=== PATIENT | male | born 1975 | race Hispanic/Latino ===

== ENCOUNTER 2017-07-31 01:10 | Emergency (ER) | payer SELFPAY ==
[2017-07-31] MEDS ORDERED: Ibuprofen 800 MG TAB ONE (01:36)
[2017-07-31] MEDS ORDERED: methylPREDNISolone Sod Succ/PF 125 MG/2 ML VIAL ONE (02:03)
[2017-07-31] MEDS ORDERED: Sterile Water 10 ML ONE (02:03)
[2017-07-31 02:14] LABS: #Lymphocytes 0.5 thou/uL (1.20-3.40); #Monocytes 0.5 thou/uL (0.11-0.59); #Neutrophils 6.5 thou/uL (1.40-6.50); %Basophils 0.1 % (0.0-1.0); %Eosinophils 0.6 % (0.0-10.0); %Lymphocytes 6.7 % (21.0-51.0); %Monocytes 6.2 % (0.0-10.0); %Neutrophils 86.4 % (42.0-75.0); Hemoglobin 14.2 g/dL (14.0-18.0); Mean Corpuscular HGB CONC 33.6 g/dL (32.0-36.0); Mean Corpuscular Hemoglobin 31.1 pg (27.0-31.0); Mean Corpuscular Volume 92.5 fl (80.0-94.0); Mean Platelet Volume 8.5 fL (7.4-10.4); Platelet Count 150 thou/uL (130-400); RBC Distribution Width 12.7 % (11.5-14.5); Red Blood Cell (RBC) Count 4.57 mill/uL (4.70-6.10); White Blood Cell (WBC) Count 7.5 thou/uL (4.8-10.8)
[2017-07-31 02:36] LABS: ALT (SGPT) 19 U/L (8-55); AST (SGOT) 18 U/L (5-34); Albumin 4.2 g/dL (3.5-5.0); Alkaline Phosphatase 76 U/L (40-150); Anion Gap 13 mmol/L (10-20); BUN (Urea Nitrogen) 10 mg/dL (8.9-20.6); Bilirubin, Total 0.5 mg/dL (0.2-1.2); Calc. Creatinine Clearance 0 mL/min (70-130); Calcium 8.8 mg/dL (7.8-10.44); Carbon Dioxide 20 mmol/L (22-29); Chloride 103 mmol/L (98-107); Estimated GFR-MDRD 76; Globulin 2.8 g/dL (2.4-3.5); Glucose 108 mg/dL (70-105); Potassium 3.7 mmol/L (3.5-5.1); Sodium 132 mmol/L (136-145)
--- NOTE | 2017-07-31 08:32 | RAD ---
CHEST PA AND LATERAL: Date: 07/31/17 HISTORY: 42-year-old male with dyspnea, weakness, headache, and nonproductive cough. COMPARISON: 04/22/15. FINDINGS: Heart size is normal. The lungs are clear. IMPRESSION: No acute intrathoracic disease. POS: [facility]
== END 2017-07-31 02:51 | disposition home or self-care (01) ==
LOC: ERS 01:10
DX: J20.9 Acute bronchitis, unspecified (principal); F17.210 Nicotine dependence, cigarettes, uncomplicated; Z71.6 Tobacco abuse counseling
CPT/HCPCS: 36415; 71046; 80053; 83605; 85025; 87040; 87804; 94640; 96374; 99406; A4216; J2930; J7620

== ENCOUNTER 2017-12-05 21:46 | Emergency (ER) | payer SELFPAY ==
[~2017-12-05 21:46] MED LIST: ISOVUE-370 76%-LOCM 1 ML ONE
[2017-12-05 22:11] LABS: #Basophils 0.1 thou/uL (0.0-0.2); #Eosinphils 0.4 thou/uL (0.0-0.7); #Lymphocytes 2.7 thou/uL (1.20-3.40); #Monocytes 0.5 thou/uL (0.11-0.59); #Neutrophils 5.1 thou/uL (1.40-6.50); %Basophils 0.9 % (0.0-1.0); %Eosinophils 4.7 % (0.0-10.0); %Lymphocytes 30.7 % (21.0-51.0); %Monocytes 5.3 % (0.0-10.0); %Neutrophils 58.3 % (42.0-75.0); Hemoglobin 14.7 g/dL (14.0-18.0); Mean Corpuscular HGB CONC 32.8 g/dL (32.0-36.0); Mean Corpuscular Hemoglobin 30.5 pg (27.0-31.0); Mean Corpuscular Volume 92.9 fl (80.0-94.0); Mean Platelet Volume 8.6 fL (7.4-10.4); Platelet Count 194 thou/uL (130-400); RBC Distribution Width 12.1 % (11.5-14.5); Red Blood Cell (RBC) Count 4.82 mill/uL (4.70-6.10); White Blood Cell (WBC) Count 8.7 thou/uL (4.8-10.8)
[2017-12-05 22:30] LABS: Bilirubin Negative (Negative); Blood, Urine Negative (Negative); Clarity CLEAR (Clear); Glucose, Urine (Dipstick) Negative (Negative); Leukocyte Negative (Negative); Nitrite Negative (Negative); Protein, Urine (Dipstick) Negative (Neg-Trace); Specific Gravity, Urine 1.028 (1.002-1.036); Urobilinogen 0.2 mg/dL (0.2-1.0)
[2017-12-05 22:36] LABS: CKMB 0.7 ng/mL (0-6.6); Troponin I Less than 0.010 ng/mL (< 0.028)
[2017-12-05 22:38] LABS: ALT (SGPT) 14 U/L (8-55); AST (SGOT) 15 U/L (5-34); Albumin 4.2 g/dL (3.5-5.0); Alkaline Phosphatase 90 U/L (40-150); Anion Gap 10 mmol/L (10-20); BUN (Urea Nitrogen) 14 mg/dL (8.9-20.6); Bilirubin, Total 0.4 mg/dL (0.2-1.2); CK (CPK) 135 U/L (30-200); Calc. Creatinine Clearance 0 mL/min (70-130); Carbon Dioxide 27 mmol/L (22-29); Chloride 104 mmol/L (98-107); Estimated GFR-MDRD Greater than 90; Globulin 2.8 g/dL (2.4-3.5); Glucose 89 mg/dL (70-105); Lipase 37 U/L (8-78); Magnesium 2.5 mg/dL (1.6-2.6); Potassium 3.7 mmol/L (3.5-5.1); Sodium 137 mmol/L (136-145)
--- NOTE | 2017-12-05 22:57 | RAD ---
AP CHEST: History: Chest pain, abdominal pain. FINDINGS: The lungs are well aerated. No evidence of active intrathoracic disease is seen. No evidence of effus ions, pneumonia, or pneumothorax is seen. IMPRESSION: Unremarkable AP chest. POS: [facility]
--- NOTE | 2017-12-05 23:01 | CT ---
CONTRAST ENHANCED CT OF THE ABDOMEN AND PELVIS: History: 42-year-old presents with constant stabbing pain for the past several months. The patient pr esents to Emergency Department for emergent work up of this chronic abdominal pain. IV contrast given . Oral contrast, unfortunately, as not given which decreases the sensitivity for detection of patholo gy. FINDINGS: The lung bases are unremarkable. No evidence of free intraperitoneal air is seen. The liver and spleen are unremarkable. The gallbladder is unremarkable. The pancreas is unremarkable. The stomach is moderately distended. The small bowel demonstrates normal appearance without evidence of obstruction. The appendix is difficult to visualize and is definitely not seen. No evidence of periaortic lymphadenopathy is seen. The patient has had previous lower lumbar and upper sacral fusion. No evidence of periaortic lymphadenopathy seen. No evidence of renal calculi seen. An area of a small sclerotic change is seen in the left ischium, possibly representing a bone island. No other obvious bony lesions seen. Incidentally noted retroaortic left renal vein is present. IMPRESSION: 1. Post-surgical changes, otherwise unremarkable CT images of the abdomen and pelvis. POS: [facility]
[2017-12-05] MEDS ORDERED: Dicyclomine 20 MG TAB ONE (23:45)
== END 2017-12-06 00:11 | disposition home or self-care (01) ==
LOC: ERS 21:46
DX: R10.9 Unspecified abdominal pain (principal); F17.210 Nicotine dependence, cigarettes, uncomplicated
CPT/HCPCS: 36415; 71045; 74177; 80053; 81003; 82550; 82553; 83690; 83735; 84484; 85025; 93005

== ENCOUNTER 2020-04-08 00:38 | Observation (INO) | payer OTHER, SELFPAY ==
[2020-04-08] MEDS ORDERED: Ondansetron PF 4 MG/2 ML Vial ONE (01:10)
[2020-04-08] MEDS ORDERED: Morphine 4 MG/ML VIAL ONE (01:10)
[2020-04-08 01:43] LABS: Hemoglobin 12.7 g/dL (14.0-18.0); Mean Corpuscular Hemoglobin 30.9 pg (27.0-31.0); Mean Corpuscular Volume 93.5 fL (78.0-98.0); Platelet Count 176 thou/uL (130-400); RBC Distribution Width 12.5 % (11.5-14.5); Red Blood Cell (RBC) Count 4.11 mill/uL (4.70-6.10); White Blood Cell (WBC) Count 4.8 thou/uL (4.8-10.8)
[2020-04-08 01:48] LABS: Band 9 % (5-11); Eosinophils 5 % (0-10); Lymphocytes 21 % (21-51); MDiff Complete? YES; Monocytes 23 % (0-10); Neutrophil 42 % (42-75)
[2020-04-08 01:52] LABS: ALT (SGPT) 31 U/L (8-55); AST (SGOT) 27 U/L (5-34); Albumin 3.8 g/dL (3.5-5.0); Alkaline Phosphatase 92 U/L (40-110); Anion Gap 12 mmol/L (10-20); BUN (Urea Nitrogen) 18 mg/dL (8.9-20.6); Bilirubin, Total 0.3 mg/dL (0.2-1.2); Calc. Creatinine Clearance 0 mL/min (70-130); Calcium 8.3 mg/dL (7.8-10.44); Carbon Dioxide 20 mmol/L (22-29); Chloride 106 mmol/L (98-107); Estimated GFR-MDRD 76; Globulin 2.5 g/dL (2.4-3.5); Glucose 90 mg/dL (70-105); Potassium 4.1 mmol/L (3.5-5.1); Protein, Total 6.3 g/dL (6.0-8.3); Sodium 134 mmol/L (136-145)
[2020-04-08 05:00] LABS: Troponin I 0.013 ng/mL (< 0.028)
[2020-04-08] MEDS ORDERED: HYDROcodone/Acetaminophen 5/325 mg Tablet ONE (05:16)
--- NOTE | 2020-04-08 06:48 | HP ---
REASON FOR ADMISSION: Chest pain. HISTORY OF PRESENT ILLNESS: This is a 45-year-old male patient who presented to the ER complaining of chest pain described as stabbing like in nature, localized in the left parasternal area off and on, occurring at rest, but influenced by positioning himself on the left side, which increases his pain. He denies shortness of breath. The intensity of the pain can range from mild to severe and it reminds him of his the pain that he had before he got a stent placed 10 days ago. Reviewing his records, the patient was admitted to our hospital approximately 10 days ago, diagnosed with non-ST elevation [place]. He underwent cardiac catheterization by Cardiology, which showed 95% obstruction of circumflex and 60% of the LAD. He underwent stent placement to the circumflex and was started on aspirin, Brilinta, an LEMUEL inhibitor, and statin. The patient was discharged home and he has been compliant with his medications. In the ER, he did complain of left lower quadrant pain and generalized abdominal pain that has been ongoing, I did review his records and I see that he had an EGD done and he was positive for H pylori. It was documented that he is being treated for that. PAST MEDICAL HISTORY: 1. Non-ST elevation WA. 2. GERD. SOCIAL HISTORY: He is an active smoker. Does not drink alcohol. Does not abuse drugs. ALLERGIES: NOT KNOWN TO HAVE ANY DRUG ALLERGIES. FAMILY HISTORY: Brother had heart attack at age 47, his father at age 65. REVIEW OF SYSTEMS: All systems reviewed except the above mentioned, found to be negative. PHYSICAL EXAMINATION: GENERAL: Awake, alert, oriented, does not appear in distress. VITAL SIGNS: His blood pressure is 100/51, pulse 67, temperature is 97.8, and saturating 90% on room air. HEENT: Head is nontraumatic and normocephalic. Pupils are equal and reactive. Extraocular movements are intact. Nonicteric sclerae. Well injected conjunctivae. Oral mucosa normal. Nasal mucosa normal. NECK: Supple. No adenopathy. No murmur. Thyroid is not palpable. Trachea is midline. No supraclavicular adenopathy. CARDIOVASCULAR: S1, S2 regular. No murmur. No gallops. No friction rubs. No displacement of PMI. I am able to reproduce the pain that he is complaining of with palpation of his left parasternal area. ABDOMEN: Bowel sounds are positive. Abdomen is slightly distended. It is tender to touch, but overall soft. EXTREMITIES: No lower extremity edema. No cyanosis. NEUROLOGIC: Cranial nerves 2 through 12 within normal limits. Normal motor function. Normal sensory function. Normal reflexes. LABORATORY DATA: Blood work shows a WBC of 4.8, hemoglobin 12.7, platelets 176. Sodium 134, potassium 4.1, bicarb of 20, creatinine 1.06. Troponin 0.01, repeat 0.013. EKG shows normal sinus rhythm, no ST-segment or T-wave changes. ASSESSMENT AND PLAN: This is a 45-year-old male patient presenting with chest pain. He had a stent placed approximately 10 days ago. So far, his troponins are negative. His pain is somewhat reproducible with palpation. The patient will be admitted to telemetry. We will continue cycling his cardiac enzymes. I will consult Cardiology and resume his home medications when the [facility] is available. In regard of his abdominal pain, it seems like it has been a chronic issue. He is on the H pylori treatment regimen and Protonix, we will resume those medications. For deep venous thrombosis prophylaxis, he will be on SCDs. Job ID: [id number]
--- NOTE | 2020-04-08 07:22 | RAD ---
Exam: Chest one view HISTORY:Left-sided chest pain. Comparison: 03/29/2020 FINDINGS: Cardiac silhouette: Normal Aorta: Unremarkable Pulmonary vessels: Normal Costophrenic angles: Clear LUNGS: No masses or consolidation. Pneumothorax: None Osseous abnormalities: None IMPRESSION: No acute cardiopulmonary process.
[2020-04-08] MEDS: Aspirin 81 mg Enteric Coated Tablet PO SCH (07:58)
[2020-04-08] MEDS: TICAGRELOR 90 MG TABLET PO SCH ×3 (07:59→21:02)
[2020-04-08] MEDS ORDERED: Morphine 2 MG/ML VIAL SLOW IVP SCH (08:00)
[2020-04-08 08:12] VITALS: BMI 25.7
[2020-04-08 08:37] LABS: Troponin I 0.013 ng/mL (< 0.028)
[2020-04-08] MEDS ORDERED: Aspirin Chewable 81 MG TAB PO SCH (09:00)
[2020-04-08] MEDS ORDERED: Ketorolac Tromethamine 30 MG/ML VIAL IVP SCH ×2 (10:00→16:30)
--- NOTE | 2020-04-08 10:38 | PRG ---
DATE OF SERVICE: 04/08/2020 SUBJECTIVE: Mr. Fraser came back to the emergency room. He has sharp stabbing chest pain. He can localize with one finger. It was reproduced with palpation of his ribs, but did not get worse with a breath. He came back to the emergency room. Cardiac enzymes were negative. EKG. Normal. OBJECTIVE: VITAL SIGNS: Blood pressure 105/60. LUNGS: Clear. CARDIAC: Normal S1, normal S2. ABDOMEN: Soft, nontender EXTREMITIES: No edema. In the right groin, there is a small at the cath site. ASSESSMENT: 1. Chest pain, sounds more musculoskeletal. 2. Recent myocardial infarction. PLAN: Give him a dose of Toradol. Repeat echocardiogram. We will do ultrasound of the groin since he is here, reevaluate and need to get the patient's pain under control prior to discharge, otherwise, I think he will come back to the hospital. I did review the cath films, stented artery had an excellent result stent across a very small branch of the LAD. It looks like about a 60% narrowing, but the lesion is just after an extremely large septal perforating artery. This supplies most of his septum, it is suboptimal for stenting. The patient's pain at this time sounds noncardiac. We will continue to follow with you. Job ID: [id number]
--- NOTE | 2020-04-08 11:31 | ULT ---
US PseudoAneurysm Gin Evl History: Evaluate for pseudoaneurysm. Recent catheterization. Comparison: None. Findings: Real-time grayscale color and spectral analysis of the right groin was performed. No pseudoaneurysm is appreciated. Mild soft tissue swelling. Impression: No pseudoaneurysm.
[2020-04-08 13:17] LABS: SARS-CoV-2 MS2 Positive; SARS-CoV-2 N Gene Positive; SARS-CoV-2 S Gene Positive; SARS-CoV-2 by NAA DETECTED (NotDetected); SARS-CoV-2 orf1ab Positive
[2020-04-08 18:03] LABS: Troponin I 0.011 ng/mL (< 0.028)
[2020-04-08] MEDS ORDERED: Atorvastatin Calcium 40 MG TAB PO SCH (21:00)
[2020-04-08] MEDS ORDERED: Sodium Chloride 0.65% Nasal 44 ML BOT EA NARE PRN (21:11)
[2020-04-09] MEDS ORDERED: Ibuprofen 600 MG TAB PO PRN (08:43)
[2020-04-09] MEDS: Aspirin 81 mg Enteric Coated Tablet PO SCH (09:50)
[2020-04-09] MEDS: TICAGRELOR 90 MG TABLET PO SCH (09:51)
--- NOTE | 2020-04-09 10:21 | PRG ---
DATE OF SERVICE: 04/09/2020 Mr. Fraser was found to have a positive COVID nasal swab yesterday. Yesterday, he had been asymptomatic in terms of any symptoms for COVID. The patient yesterday had negative cardiac enzymes. No EKG changes. The pain sounds like musculoskeletal. He was given two doses of Toradol. The pain resolved. It is okay with me to let him go home. Job ID: [id number]
[2020-04-09 12:01] VITALS: BP 120/68; TEMP 98.9
--- NOTE | 2020-04-10 04:26 | DIS ---
DATE OF ADMISSION: 04/08/2020 DATE OF DISCHARGE: 04/09/2020 DISCHARGE DIAGNOSES: 1. Atypical chest pain. 2. COVID pneumonia. HOSPITAL COURSE: The patient is a 45-year-old male who initially presented to the hospital on 04/08, with complaints of chest pain. The patient had just got stent about 10 days ago. He was seen by Cardiology who thought that this pain was most likely secondary to a noncardiac related. He did have an ultrasound of his groin area to rule out pseudoaneurysm. There was no pseudoaneurysm that was noted. The patient continued to have negative troponins. He, however, was tested positive for COVID. He was completely asymptomatic. He was discharged home. He will follow up with his primary. His home medications were resumed. He is going to be on: 1. Brilinta 90 mg b.i.d. 2. Aspirin 81 mg daily. 3. Atorvastatin 40 mg at bedtime. 4. Lisinopril 5 mg daily. 5. Omeprazole 40 mg daily. DISCHARGE PHYSICAL EXAMINATION: VITAL SIGNS: Temperature of 98.9, pulse 74, O2 sat 97% on room air, blood pressure . GENERAL: He is awake, alert, and oriented x3. Does not appear in distress. CV: S1, S2 present. No murmurs, rubs, gallops. Again, he will be discharged home. He was asked to come back if any of his symptoms changed. Job ID: [id number]
--- NOTE | 2020-04-14 10:41 | EKG ---
Test Reason : C/O CHEST PAIN Blood Pressure : / mmHG Vent. Rate : 058 BPM Atrial Rate : 058 BPM P-R Int : 176 ms QRS Dur : 092 ms QT Int : 398 ms P-R-T Axes : 052 042 036 degrees QTc Int : 390 ms Sinus bradycardia Otherwise normal ECG When compared with ECG of 08-APR-2020 00:48, (Unconfirmed) No significant change was found Confirmed by OWEN GREEN, TAMI ([id number]) on 04/14/2020 10:41:23 AM Referred By: SEBASTIAN Confirmed By:TAMI WEAVER MD
== END 2020-04-09 12:24 | disposition home or self-care (01) ==
LOC: ERS 00:38 → ERHOLD 03:51 → 2SW 07:22
PROVIDERS: ADMIT Internal Medicine; ATTEND Internal Medicine
DX: R07.89 Other chest pain (principal); U07.1 COVID-19; J12.89 Other viral pneumonia; K21.9 Gastro-esophageal reflux disease without esophagitis; F17.210 Nicotine dependence, cigarettes, uncomplicated; Z79.02 Long term (current) use of antithrombotics/antiplatelets; Z79.82 Long term (current) use of aspirin; Z79.899 Other long term (current) drug therapy; Z95.5 Presence of coronary angioplasty implant and graft
CPT/HCPCS: 36415; 71045; 76936; 80053; 83880; 84484; 85025; 87635; 93005; 93010; 96374; 96375; 96376; G0378; J1885; J2270; J2405; U0003

== ENCOUNTER 2020-04-17 21:38 | Emergency (ER) | payer SELFPAY ==
--- NOTE | 2020-04-17 21:57 | RAD ---
XR Chest 1 View Portable HISTORY: Chest pain COMPARISON: 04/08/2020 FINDINGS: The heart size is normal. The lungs are well expanded without focal areas of consolidation, pneumothorax or pleural effusions. IMPRESSION: No radiographic evidence of acute cardiopulmonary process.
[2020-04-17 22:17] LABS: #Basophils 0.1 thou/uL (0.0-0.2); #Eosinphils 0.6 thou/uL (0.0-0.7); #Monocytes 0.7 thou/uL (0.11-0.59); #Neutrophils 4.9 thou/uL (1.40-6.50); %Eosinophils 7.4 % (0.0-10.0); %Lymphocytes 24.4 % (21.0-51.0); %Monocytes 8.4 % (0.0-10.0); %Neutrophils 58.7 % (42.0-75.0); Hemoglobin 13.7 g/dL (14.0-18.0); Mean Corpuscular HGB CONC 32.8 g/dL (32.0-36.0); Mean Corpuscular Hemoglobin 30.2 pg (27.0-31.0); Mean Corpuscular Volume 92.1 fL (78.0-98.0); Mean Platelet Volume 9.1 fL (7.4-10.4); Platelet Count 209 thou/uL (130-400); RBC Distribution Width 12.5 % (11.5-14.5); Red Blood Cell (RBC) Count 4.53 mill/uL (4.70-6.10); White Blood Cell (WBC) Count 8.3 thou/uL (4.8-10.8)
[2020-04-17 22:21] LABS: ALT (SGPT) 53 U/L (8-55); AST (SGOT) 27 U/L (5-34); Albumin 4.2 g/dL (3.5-5.0); Alkaline Phosphatase 99 U/L (40-110); Anion Gap 12 mmol/L (10-20); BUN (Urea Nitrogen) 12 mg/dL (8.9-20.6); Bilirubin, Total 0.4 mg/dL (0.2-1.2); Calc. Creatinine Clearance 0 mL/min (70-130); Calcium 8.8 mg/dL (7.8-10.44); Carbon Dioxide 26 mmol/L (22-29); Chloride 106 mmol/L (98-107); Estimated GFR-MDRD 73; Globulin 2.8 g/dL (2.4-3.5); Glucose 95 mg/dL (70-105); Potassium 3.9 mmol/L (3.5-5.1); Sodium 140 mmol/L (136-145)
[2020-04-17] MEDS ORDERED: Mag-Al 1200 mg/1200 mg/30 ML UDCUP ONE (22:44)
[2020-04-17] MEDS ORDERED: Lidocaine Viscous Sol 2% 15 ml UD Cup ONE (22:44)
== END 2020-04-17 23:25 | disposition home or self-care (01) ==
LOC: ERS 21:38
DX: R07.89 Other chest pain (principal); I25.2 Old myocardial infarction; Z87.891 Personal history of nicotine dependence; Z79.899 Other long term (current) drug therapy; Z79.82 Long term (current) use of aspirin
CPT/HCPCS: 36415; 71045; 80053; 84484; 85025; 93005

== ENCOUNTER 2020-04-22 23:02 | Emergency (ER) | payer SELFPAY ==
[2020-04-22 23:38] LABS: #Basophils 0.1 thou/uL (0.0-0.2); #Eosinphils 0.5 thou/uL (0.0-0.7); #Lymphocytes 1.9 thou/uL (1.20-3.40); #Monocytes 0.6 thou/uL (0.11-0.59); #Neutrophils 3.5 thou/uL (1.40-6.50); %Basophils 1.1 % (0.0-1.0); %Eosinophils 7.5 % (0.0-10.0); %Monocytes 8.8 % (0.0-10.0); %Neutrophils 53.6 % (42.0-75.0); Hemoglobin 12.9 g/dL (14.0-18.0); Mean Corpuscular HGB CONC 32.8 g/dL (32.0-36.0); Mean Corpuscular Hemoglobin 30.2 pg (27.0-31.0); Mean Corpuscular Volume 92.2 fL (78.0-98.0); Mean Platelet Volume 9.1 fL (7.4-10.4); Platelet Count 201 thou/uL (130-400); RBC Distribution Width 12.5 % (11.5-14.5); Red Blood Cell (RBC) Count 4.26 mill/uL (4.70-6.10); White Blood Cell (WBC) Count 6.6 thou/uL (4.8-10.8)
--- NOTE | 2020-04-22 23:43 | RAD ---
Exam: Chest one view HISTORY:Chest pain Comparison: 04/17/2020 FINDINGS: Cardiac silhouette: Normal Aorta: Unremarkable Pulmonary vessels: Normal Costophrenic angles: Clear LUNGS: Patchy interstitial opacities in the lung bases with questionable focal alveolar infiltrate in the right lower lobe. Pneumothorax: None Osseous abnormalities: None IMPRESSION: Bibasilar interstitial infiltrate with possible superimposed alveolar infiltrate in the r ight lower lobe.
[2020-04-23 00:02] LABS: ALT (SGPT) 28 U/L (8-55); AST (SGOT) 24 U/L (5-34); Albumin 3.7 g/dL (3.5-5.0); Alkaline Phosphatase 90 U/L (40-110); Anion Gap 14 mmol/L (10-20); BUN (Urea Nitrogen) 19 mg/dL (8.9-20.6); Bilirubin, Total 0.5 mg/dL (0.2-1.2); Calc. Creatinine Clearance 0 mL/min (70-130); Calcium 8.4 mg/dL (7.8-10.44); Carbon Dioxide 21 mmol/L (22-29); Chloride 106 mmol/L (98-107); Estimated GFR-MDRD 66; Globulin 2.8 g/dL (2.4-3.5); Glucose 85 mg/dL (70-105); Potassium 3.8 mmol/L (3.5-5.1); Protein, Total 6.5 g/dL (6.0-8.3); Sodium 137 mmol/L (136-145)
[2020-04-23] MEDS ORDERED: Ketorolac Tromethamine 30 MG/ML VIAL ONE (00:22)
[2020-04-23 00:38] LABS: Amphetamine Not Detected (NotDetected); Barbiturates Screen Not Detected (NotDetected); Benzodiazepine Screen Not Detected (NotDetected); Cocaine Metabolite Screen Not Detected (NotDetected); Medtox Control Line Valid? VALID (VALID); Medtox Reader # READER 1; Methadone Not Detected (NotDetected); Methamphetamine Not Detected (NotDetected); Opiate Screen Not Detected (NotDetected); Oxycodone Screen Not Detected (NotDetected); Phencyclidine (PCP) Not Detected (NotDetected); THC/Cannabinoid Screen Not Detected (NotDetected); Tricyclic Screen Not Detected (NotDetected)
[2020-04-23 02:03] LABS: Troponin I Less than 0.010 ng/mL (< 0.028)
== END 2020-04-23 02:16 | disposition home or self-care (01) ==
LOC: ERS 23:02
DX: J18.9 Pneumonia, unspecified organism (principal); Z87.891 Personal history of nicotine dependence; Z79.82 Long term (current) use of aspirin; Z79.899 Other long term (current) drug therapy
CPT/HCPCS: 36415; 71045; 80053; 80306; 83880; 84484; 85025; 93005; J1885

== ENCOUNTER 2020-05-09 14:48 | Observation (INO) | payer SELFPAY ==
--- NOTE | 2020-05-09 15:07 | RAD ---
EXAM: Single view of the chest HISTORY: Chest pain with positive Covid test one month ago COMPARISON: 04/23/2020 FINDINGS: Single view of the chest shows a normal sized cardiomediastinal silhouette. There is no laurie dence of consolidation, mass, or pleural effusion. No acute osseous abnormality. IMPRESSION: No evidence of acute cardiopulmonary disease
[2020-05-09 15:18] LABS: #Basophils 0.1 thou/uL (0.0-0.2); #Eosinphils 0.6 thou/uL (0.0-0.7); #Lymphocytes 2.3 thou/uL (1.20-3.40); #Monocytes 0.6 thou/uL (0.11-0.59); #Neutrophils 3.4 thou/uL (1.40-6.50); %Basophils 1.2 % (0.0-1.0); %Eosinophils 8.6 % (0.0-10.0); %Lymphocytes 32.8 % (21.0-51.0); %Monocytes 8.7 % (0.0-10.0); %Neutrophils 48.7 % (42.0-75.0); Hemoglobin 14.7 g/dL (14.0-18.0); Mean Corpuscular HGB CONC 32.7 g/dL (32.0-36.0); Mean Corpuscular Hemoglobin 29.7 pg (27.0-31.0); Mean Platelet Volume 9.2 fL (7.4-10.4); Platelet Count 197 thou/uL (130-400); RBC Distribution Width 12.2 % (11.5-14.5); Red Blood Cell (RBC) Count 4.95 mill/uL (4.70-6.10)
[2020-05-09 15:42] LABS: ALT (SGPT) 28 U/L (8-55); AST (SGOT) 28 U/L (5-34); Alkaline Phosphatase 114 U/L (40-110); Anion Gap 13 mmol/L (10-20); BUN (Urea Nitrogen) 14 mg/dL (8.9-20.6); Bilirubin, Total 0.5 mg/dL (0.2-1.2); CK (CPK) 178 U/L (30-200); Calc. Creatinine Clearance 0 mL/min (70-130); Calcium 8.6 mg/dL (7.8-10.44); Carbon Dioxide 25 mmol/L (22-29); Chloride 105 mmol/L (98-107); Estimated GFR-MDRD 65; Glucose 96 mg/dL (70-105); Lipase 42 U/L (8-78); Potassium 4.5 mmol/L (3.5-5.1); Sodium 138 mmol/L (136-145)
[2020-05-09 18:00] LABS: Troponin I Less than 0.010 ng/mL (< 0.028)
[2020-05-09] MEDS ORDERED: Aspirin Chewable 81 MG TAB ONE (18:44)
[2020-05-09] MEDS ORDERED: Nitroglycerin 0.4 MG TAB 1 EACH ONE (18:44)
--- NOTE | 2020-05-09 19:59 | PDOC.HHP ---
Hospitalist HPI - History of Present Illness Chest pain History of Present Illness: PCP: Dr. Dennison Patient is a 45-year-old male with a history of TX, recent stent placement (04/07), hypertension, hyperlipidemia, smoker, and GERD that presents to the emergency department for the above complaint. The patient reports gradual onset of chest pain starting yesterday, located midsternum, radiating to left jaw and left upper extremity, described as sharp and pressure, exacerbated relieved by nothing. Says that this pain is exactly like his pain when he had a heart attack. Reports associated shortness of breath. He has been compliant with dual antiplatelet therapy. No history of DVT/PE. Denies any illicit drug use. No history of COPD/asthma. Denies heart palpitations, swelling to lower extremities, lightheadedness. Denies nausea, vomiting, diarrhea. Has no urinary symptoms. No recent illness or fevers. ED Course: VITAL SIGNS Jacquelyn May 09, 2020 14:50 [place] Lindo Kelsey BP: 113/71, Pulse: 68, Resp: 16, Temp: 98.6 (Oral), O2 sat: 99 on (Room Air), Time: 05/09/2020 14:50. VITAL SIGNS Jacquelyn May 09, 2020 16:08 [place] Nicole BP: 108/67, MAP: 81, Pulse: 66, Resp: 17, Pain: 9, O2 sat: 99 on (Room Air), Time: 05/09/2020 16:08. VITAL SIGNS Jacquelyn May 09, 2020 17:40 [place] Nicole BP: 119/76, MAP: 90, Pulse: 62, Resp: 18, Temp: 99.0 (Oral), Pain: 8, O2 sat: 100 on (Room Air), Time: 05/09/2020 17:40. VITAL SIGNS Jacquelyn May 09, 2020 18:45 [place] Pruitt Sarah BP: 123/80, MAP: 94, Pulse: 67, Resp: 17, Pain: 8, O2 sat: 100 on (Room Air), Time: 05/09/2020 18:45. VITAL SIGNS Jacquelyn May 09, 2020 19:00 [place] Pruitt Sarah BP: 121/79, MAP: 93, Pulse: 73, Resp: 17, Temp: 98.8 (Oral), Pain: 8, O2 sat: 99 on (Room Air), Time: 05/09/2020 19:00. VITAL SIGNS Jacquelyn May 09, 2020 19:20 [place] Pruitt, Aarti BP: 113/77, MAP: 89, Pulse: 69, Resp: 18, O2 sat: 98 on (Room Air), Time: 05/09/2020 19:20. Medication administration: nitroglycerin sublingual 0.4 mg Sublingual Given 18:55 05/09/2020 Aspirin Low Dose 243 mg Oral Given 18:55 05/09/2020 Hospitalist ROS - Review of Systems All other systems reviewed; all pertinent +/- noted in HPI/Subj - Medication Medications: aspirin oral TABLET : Strength - 81 mg : ORAL Patient Dose: 1 tab(s) Oral once a day. atorvastatin TABLET : Strength - 40 mg : ORAL Patient Dose: 1 tab(s) Oral once a day (at bedtime). lisinopril TABLET : Strength - 20 mg : ORAL Patient Dose: 5 mg Oral once a day. omeprazole CAPSULE,DELAYED RELEASE (ENTERIC COATED) : Strength - 20 mg : ORAL Patient Dose: 1 tab(s) Oral 2 times a day (before meals). nitroglycerin sublingual tablet, sublingual : Strength - 0.4 mg : SUBLINGUAL Patient Dose: once a day PRN. Brilinta tablet : Strength - 90 mg : ORAL Patient Dose: Unknown. Allergies: NKDA Hospitalist History - Past Medical History Source: patient, early learning teacher, RN notes reviewed Cardiac: reports: CAD, HTN, TX, Hyperlipidemia Gastrointestinal: reports: GERD - Past Surgical History Past Surgical History: reports: Other (CAD x1 (04/07), back surgery (2016)) - Family History Family History: reports: cardiac disorder (Father) - Social History Smoking Status: Current every day smoker (Half pack per day x10 years) Alcohol: reports: None Drugs: reports: none Living Situation: With Family Occupation: Does not work Activity level: independent ambulation - Exam General Appearance: NAD, awake alert Eye: anicteric sclera ENT: normocephalic atraumatic Neck: supple, symmetric, no JVD Heart: RRR, no murmur, no gallops, no rubs, normal peripheral pulses Respiratory: CTAB, no wheezes, no rales, no ronchi, normal chest expansion, no tachypnea Gastrointestinal: soft, non-tender, normal bowel sounds, no bruit, no guarding, no rigidity Extremities: no cyanosis, no edema Skin: no rashes Neurological: no weakness, no focal deficits Musculoskeletal: normal tone, normal strength Psychiatric: normal affect, A&O x 3 (Faroese speaking) Hospitalist Results - Labs Result Diagrams: 05/09/20 15:10 05/09/20 15:10 Lab results: WBC 7.0 thou/uL (4.8-10.8) 05/09/20 15:10 Hgb 14.7 g/dL (14.0-18.0) 05/09/20 15:10 Hct 45.1 % (42.0-52.0) 05/09/20 15:10 MCV 91.0 fL (78.0-98.0) 05/09/20 15:10 Plt Count 197 thou/uL (130-400) 05/09/20 15:10 Neutrophils % 48.7 % (42.0-75.0) 05/09/20 15:10 Sodium 138 mmol/L (136-145) 05/09/20 15:10 Potassium 4.5 mmol/L (3.5-5.1) 05/09/20 15:10 Chloride 105 mmol/L (98-107) 05/09/20 15:10 Carbon Dioxide 25 mmol/L (22-29) 05/09/20 15:10 BUN 14 mg/dL (8.9-20.6) 05/09/20 15:10 Creatinine 1.22 mg/dL (0.7-1.3) 05/09/20 15:10 Glucose 96 mg/dL (70-105) 05/09/20 15:10 Calcium 8.6 mg/dL (7.8-10.44) 05/09/20 15:10 Total Bilirubin 0.5 mg/dL (0.2-1.2) 05/09/20 15:10 AST 28 U/L (5-34) 05/09/20 15:10 ALT 28 U/L (8-55) 05/09/20 15:10 Alkaline Phosphatase 114 U/L (40-110) H 05/09/20 15:10 Creatine Kinase 178 U/L (30-200) 05/09/20 15:10 Troponin I Less than 0.010 ng/mL (< 0.028) 05/09/20 17:26 Serum Total Protein 8.0 g/dL (6.0-8.3) 05/09/20 15:10 Albumin 4.0 g/dL (3.5-5.0) 05/09/20 15:10 Lipase 42 U/L (8-78) 05/09/20 15:10 - EKG Interpretation EK lead EKG interpreted by Emergency Department Physician at time of study, 12 lead EKG shows normal sinus rhythm, Rate (beats per minute): 67, with no ec topics, Interpretation: normal EKG, ST segments normal, T waves normal, [place] normal. - Radiology Interpretation Chest x-ray Status: report reviewed by me Additional Comment: IMPRESSION: No evidence of acute cardiopulmonary disease Hospitalist H&P A/P - Problem (1) Chest pain Code(s): R07.9 - CHEST PAIN, UNSPECIFIED Status: Acute (2) CAD (coronary artery disease) Code(s): I25.10 - ATHSCL HEART DISEASE OF [place] CORONARY ARTERY W/O ANG PCTRS Status: Chronic (3) Hypertension Code(s): I10 - ESSENTIAL (PRIMARY) HYPERTENSION Status: Chronic (4) Dyslipidemia Code(s): E78.5 - HYPERLIPIDEMIA, UNSPECIFIED Status: Acute (5) GERD (gastroesophageal reflux disease) Code(s): K21.9 - GASTRO-ESOPHAGEAL REFLUX DISEASE WITHOUT ESOPHAGITIS Status: Chronic (6) Tobacco abuse Code(s): Z72.0 - TOBACCO USE Status: Chronic - Plan Plan: 45/M with PMH CAD that presents for chest pain. Admit telemetry floor, observation status. Expected length of stay less than 2 midnights. Presented NL BP, HR, RR, SPO2, afebrile EKG NSR, no ST elevation. CXR no acute process. Troponin negative x2. #Chest pain Heart score 3, [place] PE score 0. Continue aspirin and Brilinta. Add Nitropaste and morphine as needed. Trend troponins, check TSH, mag, UA. Had recent FLP. Consult cardiology. N.p.o. #CAD Recent cardiac stent (04/07) by Dr. Mooney. Reports compliant with Brilinta and aspirin therapy. Continue Brilinta and aspirin. #Hypertension Presented normotensive. Takes lisinopril at home. Restart home dose of lisinopril. Continue to monitor BP. #Dyslipidemia Recent FLP. Takes atorvastatin at home. Restart home dose of atorvastatin. #GERD Takes omeprazole at home. Restart home dose of omeprazole. #Tobacco abuse Smokes half pack per day x10 years. Tobacco cessation counseling. SCDs for DVT prophylaxis. No GI prophylaxis. Full code. Discussed case with Dr. Otis Jay.
[2020-05-09] MEDS ORDERED: Nitroglycerin 0.4 MG TAB (25 Tab Bottle) SL PRN (21:49)
[2020-05-09] MEDS ORDERED: Acetaminophen 325 MG TAB PO PRN (21:52)
[2020-05-09] MEDS ORDERED: Ondansetron PF 4 MG/2 ML Vial IVP PRN (21:52)
[2020-05-09] MEDS ORDERED: Calcium Carbonate 500 MG ChewTAB PO PRN (21:52)
[2020-05-09] MEDS ORDERED: Ondansetron ODT 4 MG TAB PO PRN (21:52)
[2020-05-09] MEDS ORDERED: Senokot S 8.6-50 MG TAB PO PRN (21:52)
[2020-05-09] MEDS ORDERED: Morphine 2 MG/ML VIAL SLOW IVP PRN (21:55)
[2020-05-09] MEDS ORDERED: Lidocaine 2% Viscous Solution 10 ML, Aluminum & Magnesium Hydroxide 30 ML SSW SCH (22:00)
[2020-05-09] MEDS: Nitroglycerin 2% Ointment 1 INCH/1 GM Packet TOP SCH (22:50)
[2020-05-09 22:57] VITALS: BMI 25.7
[2020-05-09 23:07] LABS: Troponin I Less than 0.010 ng/mL (< 0.028)
[2020-05-10 05:10] LABS: #Basophils 0.1 thou/uL (0.0-0.2); #Eosinphils 0.5 thou/uL (0.0-0.7); #Lymphocytes 1.8 thou/uL (1.20-3.40); #Monocytes 0.6 thou/uL (0.11-0.59); %Basophils 1.1 % (0.0-1.0); %Eosinophils 10.4 % (0.0-10.0); %Lymphocytes 36.9 % (21.0-51.0); %Monocytes 11.3 % (0.0-10.0); %Neutrophils 40.2 % (42.0-75.0); Mean Corpuscular HGB CONC 32.9 g/dL (32.0-36.0); Mean Corpuscular Hemoglobin 30.5 pg (27.0-31.0); Mean Corpuscular Volume 92.8 fL (78.0-98.0); Mean Platelet Volume 9.1 fL (7.4-10.4); Platelet Count 165 thou/uL (130-400); RBC Distribution Width 12.4 % (11.5-14.5); Red Blood Cell (RBC) Count 4.58 mill/uL (4.70-6.10); White Blood Cell (WBC) Count 4.9 thou/uL (4.8-10.8)
[2020-05-10 05:49] LABS: Anion Gap 12 mmol/L (10-20); BUN (Urea Nitrogen) 15 mg/dL (8.9-20.6); Calc. Creatinine Clearance 105 mL/min (70-130); Calcium 8.6 mg/dL (7.8-10.44); Carbon Dioxide 25 mmol/L (22-29); Chloride 105 mmol/L (98-107); Estimated GFR-MDRD 83; Glucose 92 mg/dL (70-105); Sodium 138 mmol/L (136-145)
[2020-05-10] MEDS: Nitroglycerin 2% Ointment 1 INCH/1 GM Packet TOP SCH (06:59)
[2020-05-10 07:56] LABS: Bacteria/HPF None Seen HPF (None Seen); Bilirubin Negative (Negative); Blood, Urine Negative (Negative); Clarity Clear (Clear); Glucose, Urine (Dipstick) Normal (Negative); Ketone, Urine Negative (Negative); Leukocyte Negative Leu/uL (Negative); Nitrite Negative (Negative); Protein, Urine (Dipstick) 10 mg/dL (Neg-Trace); RBC/HPF 0-3 HPF (0-3); Specific Gravity, Urine 1.025 (1.002-1.036); Squamous Epithelial 0-3 HPF (0-3); Urobilinogen Normal mg/dL (Less than 2); WBC/HPF 0-3 HPF (0-3)
[2020-05-10] MEDS ORDERED: TICAGRELOR 90 MG TABLET PO SCH (09:00)
[2020-05-10] MEDS ORDERED: Polyethylene Glycol 3350 17 GM Packet PO SCH (09:00)
[2020-05-10] MEDS ORDERED: Aspirin 81 mg Enteric Coated Tablet PO SCH (09:00)
[2020-05-10] MEDS ORDERED: Lisinopril 5 MG TAB PO SCH (09:00)
[2020-05-10] MEDS ORDERED: Clopidogrel Bisulfate 300 MG TAB PO SCH (09:15)
[2020-05-10] MEDS ORDERED: Ketorolac Tromethamine 30 MG/ML VIAL IVP SCH (09:15)
[2020-05-10 10:18] LABS: Cardiac Risk 3.8 (Less than 4.5)
--- NOTE | 2020-05-10 13:30 | NM ---
Radionucleotide stress and rest myocardial perfusion scan with CT attenuation correction and SPECT im aging Left ventricular wall motion evaluation and ejection fraction HISTORY: Chest pain. FINDINGS: Lexiscan protocol. Heterogeneous uptake of radiotracer throughout the left ventricular myoc ardium. No focal perfusion defect or reversibility. QGS analysis of gated SPECT images shows no focal wall motion abnormalities. Ejection fraction calcul ated at 49%. IMPRESSION : No evidence of ischemia. Borderline LVEF 49%.
[2020-05-10 13:31] VITALS: BP 121/79; TEMP 97.7
[2020-05-10] MEDS ORDERED: Etodolac ER 400 mg Tablet PO SCH (14:00)
--- NOTE | 2020-05-10 14:22 | PRG ---
DATE OF SERVICE: 05/10/2020 SUBJECTIVE: Mr. Fraser came back to the hospital last night again complaining of chest pain. He said left to the midline, goes up underneath the collarbone of the left shoulder and left side of his neck. The patient stated it did hurt somewhat more with a deep breath. He said it is in the same location as when he had a heart attack. His heart attack was 6 weeks ago. He had a stent placed in the circumflex distribution. The patient since then has had COVID infection, but has recovered from that. The patient did not have any change in his pain with nitroglycerin last night. The cardiac enzymes were completely normal and the EKGs were completely normal. Stress test revealed no evidence of any ischemia. The patient's pain resolved with Toradol 1 time dose. PHYSICAL EXAMINATION: VITAL SIGNS: Blood pressure is 120/79, pulse 65 and regular. LUNGS: Clear. CARDIAC: Normal S1, normal S2. ABDOMEN: Soft and nontender. EXTREMITIES: There is no edema. Testing as outlined above. ASSESSMENT: 1. Status post myocardial infarction 6 weeks ago, had a stent placed in the circumflex distribution, had a borderline lesion in the LAD distribution. The lesion was just after extremely large septal perforating artery which supplied most of his septum. The LAD past that area just supplies large diagonal branch area. The apex was supplied by the right coronary artery. Intervention in that area could jeopardize his very large septal perforating artery that could potentially be occluded with stenting. 2. Atypical chest pain. 3. Negative cardiac enzymes. 4. Currently, the pain more typical of musculoskeletal. PLAN: 1. He got Toradol one time. 2. Give Lodine XL for 7 days. 3. Continue activity. 4. He quit smoking 6 weeks ago after his myocardial infarction. MEDICATIONS: 1. Aspirin 81 mg a day. 2. Plavix 75 mg a day. 3. Lisinopril 5 mg a day. 4. Lipitor 40 mg a day. 5. Lodine XL 400 mg a day for 7 days. Job ID: [id number]
[2020-05-10] MEDS ORDERED: Regadenoson 0.4 MG/5 ML SYRINGE ONE (14:47)
--- NOTE | 2020-05-10 17:05 | DIS ---
DATE OF ADMISSION: 05/09/2020 DATE OF DISCHARGE: 05/10/2020 DISCHARGE DISPOSITION: Home. FOLLOWUP: 1. Follow up with primary care physician Dr. Dennison in 1 week. 2. Follow up with Cardiology, Dr. Mooney as scheduled. ALLERGIES: NO KNOWN DRUG ALLERGIES. DISCHARGE MEDICATION: Brilinta was changed to Plavix. All other home medications were left unchanged. He was given a prescription for Lodine by Dr. Mooney. All other home medications were left unchanged. The patient was seen and examined on the day of discharge. Denies any new complaints. No chest pain, shortness of breath, palpitations reported. BRIEF HOSPITAL COURSE: The patient is a 45-year-old male with recent stent placement, presented to the emergency room with chest discomfort. Please refer to the history and physical for further details. The patient was admitted to the hospital with a diagnosis of chest discomfort, rule out acute coronary syndrome. Serial troponins remained negative. The patient was evaluated by Cardiology, Dr. Mooney. Dr. Mooney recommended a stress test which was negative for reversible ischemia. Dr. Mooney recommended a short course of antiinflammatory. Also Brilinta was transitioned to Plavix per Cardiology recommendation. He has been cleared by Cardiology for discharge. FINAL DIAGNOSES: 1. Chest discomfort, acute coronary syndrome ruled out. 2. Coronary artery disease status post recent ID with stent placement. 3. Hyperlipidemia. 4. Gastroesophageal reflux disease. 5. Tobacco dependence. SIGNIFICANT LABORATORY DATA: Fasting lipid profile showed triglyceride 252, cholesterol 102, LDL 25 with HDL of 27. TSH was 2.2. Troponin was negative. The patient understands the above plan of care. Job ID: [id number]
[2020-05-10] MEDS ORDERED: Atorvastatin Calcium 40 MG TAB PO SCH (21:00)
[2020-05-11] MEDS ORDERED: Clopidogrel Bisulfate 75 MG TAB PO SCH (09:00)
== END 2020-05-10 15:48 | disposition home or self-care (01) ==
LOC: ERS 14:48 → 2SW 19:47
PROVIDERS: ADMIT Internal Medicine; ATTEND Internal Medicine
DX: R07.89 Other chest pain (principal); I25.10 Atherosclerotic heart disease of native coronary artery without angina pectoris; E78.5 Hyperlipidemia, unspecified; K21.9 Gastro-esophageal reflux disease without esophagitis; I25.2 Old myocardial infarction; Z79.899 Other long term (current) drug therapy; Z86.19 Personal history of other infectious and parasitic diseases; Z87.891 Personal history of nicotine dependence; Z95.5 Presence of coronary angioplasty implant and graft
CPT/HCPCS: 36415; 71045; 78452; 80048; 80053; 80061; 81001; 82550; 83690; 83735; 83880; 84443; 84484; 85025; 93005; 93017; 94760; 96374; 96375; A9500; G0378; J1885; J2785

== ENCOUNTER 2020-05-10 22:16 | Emergency (ER) | payer SELFPAY ==
[2020-05-10 23:08] LABS: #Basophils 0.1 thou/uL (0.0-0.2); #Eosinphils 0.5 thou/uL (0.0-0.7); #Lymphocytes 2.2 thou/uL (1.20-3.40); #Monocytes 0.5 thou/uL (0.11-0.59); #Neutrophils 3.2 thou/uL (1.40-6.50); %Basophils 1.3 % (0.0-1.0); %Eosinophils 7.2 % (0.0-10.0); %Lymphocytes 34.1 % (21.0-51.0); %Monocytes 8.4 % (0.0-10.0); %Neutrophils 49.1 % (42.0-75.0); Hemoglobin 14.2 g/dL (14.0-18.0); Mean Corpuscular HGB CONC 33.5 g/dL (32.0-36.0); Mean Corpuscular Hemoglobin 30.7 pg (27.0-31.0); Mean Corpuscular Volume 91.7 fL (78.0-98.0); Mean Platelet Volume 9.3 fL (7.4-10.4); Platelet Count 176 thou/uL (130-400); RBC Distribution Width 12.4 % (11.5-14.5); Red Blood Cell (RBC) Count 4.63 mill/uL (4.70-6.10); White Blood Cell (WBC) Count 6.4 thou/uL (4.8-10.8)
[2020-05-10 23:35] LABS: ALT (SGPT) 26 U/L (8-55); AST (SGOT) 26 U/L (5-34); Albumin 3.5 g/dL (3.5-5.0); Alkaline Phosphatase 95 U/L (40-110); Anion Gap 12 mmol/L (10-20); BUN (Urea Nitrogen) 16 mg/dL (8.9-20.6); Bilirubin, Total 0.5 mg/dL (0.2-1.2); Calc. Creatinine Clearance 0 mL/min (70-130); Calcium 8.2 mg/dL (7.8-10.44); Carbon Dioxide 24 mmol/L (22-29); Chloride 105 mmol/L (98-107); Estimated GFR-MDRD 82; Glucose 113 mg/dL (70-105); Lipase 37 U/L (8-78); Potassium 4.2 mmol/L (3.5-5.1); Protein, Total 6.5 g/dL (6.0-8.3); Sodium 137 mmol/L (136-145)
[2020-05-11] MEDS ORDERED: Ketorolac Tromethamine 30 MG/ML VIAL ONE (00:31)
--- NOTE | 2020-05-11 07:33 | RAD ---
PORTABLE CHEST: Date: 05/10/2020 COMPARISON: Prior day's study. HISTORY: Chest pain. FINDINGS: Heart size and mediastinum are within normal limits. The lungs appear clear of any infiltrates. No si gnificant bony findings. IMPRESSION: No active intrathoracic disease. POS: [facility]
== END 2020-05-11 01:19 | disposition home or self-care (01) ==
LOC: ERS 22:16
DX: R07.89 Other chest pain (principal); I25.2 Old myocardial infarction; I10 Essential (primary) hypertension; E78.00 Pure hypercholesterolemia, unspecified; Z87.891 Personal history of nicotine dependence; Z79.899 Other long term (current) drug therapy; Z79.82 Long term (current) use of aspirin
CPT/HCPCS: 36415; 71045; 83690; 84484; 93005; 96374; J1885

== ENCOUNTER 2021-03-23 09:56 | Inpatient (IN) | payer SELFPAY ==
[2021-03-23] MEDS ORDERED: Iopamidol-370 76% 500 ML 1 ML ONE (09:57)
[2021-03-23 11:02] LABS: #Basophils 0.1 thou/uL (0.0-0.2); #Eosinphils 0.2 thou/uL (0.0-0.7); #Monocytes 0.4 thou/uL (0.11-0.59); #Neutrophils 4.2 thou/uL (1.40-6.50); %Basophils 1.2 % (0.0-1.0); %Eosinophils 3.1 % (0.0-10.0); %Lymphocytes 16.5 % (21.0-51.0); %Monocytes 7.2 % (0.0-10.0); %Neutrophils 71.9 % (42.0-75.0); Hemoglobin 14.4 g/dL (14.0-18.0); Mean Corpuscular HGB CONC 33.7 g/dL (32.0-36.0); Mean Corpuscular Hemoglobin 30.7 pg (27.0-31.0); Mean Corpuscular Volume 91.2 fL (78.0-98.0); Mean Platelet Volume 9.2 fL (7.4-10.4); Platelet Count 200 thou/uL (130-400); RBC Distribution Width 11.8 % (11.5-14.5); White Blood Cell (WBC) Count 5.8 thou/uL (4.8-10.8)
[2021-03-23 11:24] LABS: ALT (SGPT) 15 U/L (8-55); AST (SGOT) 15 U/L (5-34); Alkaline Phosphatase 95 U/L (40-110); Anion Gap 10 mmol/L (10-20); BUN (Urea Nitrogen) 13 mg/dL (8.9-20.6); Bilirubin, Total 0.6 mg/dL (0.2-1.2); Calc. Creatinine Clearance 0 mL/min (70-130); Calcium 9.2 mg/dL (7.8-10.44); Carbon Dioxide 24 mmol/L (22-29); Chloride 104 mmol/L (98-107); Globulin 3.1 g/dL (2.4-3.5); Glucose 112 mg/dL (70-105); Protein, Total 7.1 g/dL (6.0-8.3); Sodium 134 mmol/L (136-145)
[2021-03-23] MEDS ORDERED: Fentanyl 100 MCG/2 ML VIAL ONE ×2 (11:28→15:13)
[2021-03-23] MEDS ORDERED: Ondansetron PF 4 MG/2 ML Vial ONE (11:28)
[2021-03-23 14:57] LABS: Bilirubin Unable to Interpret (Negative); Blood, Urine Unable to Interpret (Negative); Clarity Cloudy (Clear); Glucose, Urine (Dipstick) Unable to Interpret mg/dL (Negative); Ketone, Urine Unable to Interpret mg/dL (Negative); Leukocyte Unable to Interpret Leu/uL (Negative); Nitrite Unable to Interpret (Negative); Protein, Urine (Dipstick) Unable to Interpret mg/dL (Neg-Trace); Urobilinogen UNABLE TO INTERPRET mg/dL (Less than 2)
[2021-03-23 15:01] LABS: Specific Gravity, Urine 1.027 (1.002-1.036)
[2021-03-23 15:04] LABS: Bacteria/HPF Rare-Few HPF (None Seen); RBC/HPF Greater than 50 HPF (0-3); Squamous Epithelial None Seen HPF (0-3); WBC/HPF 0-3 HPF (0-3)
[2021-03-23 18:12] LABS: SARS-CoV-2 NAA Rapid Test Not Detected (NotDetected)
[2021-03-23] MEDS ORDERED: HYDROcodone/Acetaminophen 5/325 mg Tablet PO PRN (18:27)
[2021-03-23] MEDS ORDERED: Gabapentin 300 MG CAP PO PRN (18:27)
[2021-03-23] MEDS ORDERED: hydrALAZINE 20 MG/ML VIAL SLOW IVP PRN (18:27)
[2021-03-23] MEDS ORDERED: Ondansetron ODT 4 MG TAB PO PRN (18:27)
[2021-03-23] MEDS ORDERED: Acetaminophen 500 MG TAB PO PRN (18:27)
[2021-03-23] MEDS ORDERED: Ondansetron PF 4 MG/2 ML Vial IVP PRN (18:27)
[2021-03-23] MEDS ORDERED: Morphine 4 MG/ML VIAL SLOW IVP SCH (18:45)
[2021-03-23] MEDS: Sodium Chloride 0.9% 1,000 ML IV SCH (18:49)
[2021-03-23] MEDS: Famotidine 20 MG TAB PO SCH (20:12)
[2021-03-23 21:55] VITALS: BMI 25.2
[2021-03-24] MEDS: Morphine 4 MG/ML VIAL SLOW IVP PRN ×2 (00:31→21:02)
[2021-03-24] MEDS: Sodium Chloride 0.9% 1,000 ML IV SCH ×2 (04:00→15:18)
[2021-03-24 06:08] LABS: #Eosinphils 0.2 thou/uL (0.0-0.7); #Monocytes 0.6 thou/uL (0.11-0.59); #Neutrophils 8.1 thou/uL (1.40-6.50); %Basophils 0.2 % (0.0-1.0); %Eosinophils 1.7 % (0.0-10.0); %Lymphocytes 10.2 % (21.0-51.0); %Monocytes 5.8 % (0.0-10.0); %Neutrophils 82.1 % (42.0-75.0); Hemoglobin 12.5 g/dL (14.0-18.0); Mean Corpuscular HGB CONC 33.1 g/dL (32.0-36.0); Mean Corpuscular Hemoglobin 30.5 pg (27.0-31.0); Mean Corpuscular Volume 92.3 fL (78.0-98.0); Mean Platelet Volume 9.2 fL (7.4-10.4); Platelet Count 184 thou/uL (130-400); RBC Distribution Width 11.9 % (11.5-14.5); White Blood Cell (WBC) Count 9.9 thou/uL (4.8-10.8)
[2021-03-24 06:26] LABS: Anion Gap 10 mmol/L (10-20); BUN (Urea Nitrogen) 11 mg/dL (8.9-20.6); Calc. Creatinine Clearance 117 mL/min (70-130); Calcium 8.2 mg/dL (7.8-10.44); Carbon Dioxide 25 mmol/L (22-29); Chloride 103 mmol/L (98-107); Glucose 112 mg/dL (70-105); Potassium 4.1 mmol/L (3.5-5.1); Sodium 134 mmol/L (136-145)
[2021-03-24] MEDS ORDERED: Aspirin Chewable 81 MG TAB PO SCH (09:00)
[2021-03-24] MEDS: Famotidine 20 MG TAB PO SCH ×2 (09:14→21:02)
[2021-03-25 06:26] LABS: #Eosinphils 0.3 thou/uL (0.0-0.7); #Lymphocytes 1.3 thou/uL (1.20-3.40); #Monocytes 0.6 thou/uL (0.11-0.59); #Neutrophils 4.7 thou/uL (1.40-6.50); %Basophils 0.3 % (0.0-1.0); %Eosinophils 3.9 % (0.0-10.0); %Monocytes 8.9 % (0.0-10.0); %Neutrophils 67.9 % (42.0-75.0); Hemoglobin 10.1 g/dL (14.0-18.0); Mean Corpuscular HGB CONC 34.3 g/dL (32.0-36.0); Mean Corpuscular Hemoglobin 31.7 pg (27.0-31.0); Mean Corpuscular Volume 92.5 fL (78.0-98.0); Mean Platelet Volume 9.2 fL (7.4-10.4); Platelet Count 173 thou/uL (130-400); RBC Distribution Width 11.6 % (11.5-14.5); Red Blood Cell (RBC) Count 3.18 mill/uL (4.70-6.10); White Blood Cell (WBC) Count 6.9 thou/uL (4.8-10.8)
[2021-03-25 06:57] LABS: Anion Gap 9 mmol/L (10-20); BUN (Urea Nitrogen) 8 mg/dL (8.9-20.6); Calc. Creatinine Clearance 127 mL/min (70-130); Carbon Dioxide 27 mmol/L (22-29); Chloride 105 mmol/L (98-107); Glucose 90 mg/dL (70-105); Potassium 3.9 mmol/L (3.5-5.1); Sodium 137 mmol/L (136-145)
[2021-03-25] MEDS: Aspirin 81 mg Enteric Coated Tablet PO SCH (08:32)
[2021-03-25] MEDS: Sodium Chloride 0.9% 1,000 ML IV SCH ×3 (08:32→21:28)
[2021-03-25] MEDS: Famotidine 20 MG TAB PO SCH ×2 (08:32→21:29)
[2021-03-25] MEDS: HYDROcodone/Acetaminophen 5/325 mg Tablet PO PRN ×2 (11:45→21:28)
[2021-03-26 06:06] LABS: #Basophils 0.1 thou/uL (0.0-0.2); #Eosinphils 0.3 thou/uL (0.0-0.7); #Lymphocytes 1.1 thou/uL (1.20-3.40); #Monocytes 0.4 thou/uL (0.11-0.59); #Neutrophils 2.8 thou/uL (1.40-6.50); %Basophils 1.2 % (0.0-1.0); %Eosinophils 7.2 % (0.0-10.0); %Lymphocytes 23.7 % (21.0-51.0); %Monocytes 8.5 % (0.0-10.0); %Neutrophils 59.3 % (42.0-75.0); Hemoglobin 10.2 g/dL (14.0-18.0); Mean Corpuscular Hemoglobin 30.7 pg (27.0-31.0); Mean Corpuscular Volume 92.9 fL (78.0-98.0); Mean Platelet Volume 8.7 fL (7.4-10.4); Platelet Count 185 thou/uL (130-400); RBC Distribution Width 11.7 % (11.5-14.5); Red Blood Cell (RBC) Count 3.32 mill/uL (4.70-6.10); White Blood Cell (WBC) Count 4.7 thou/uL (4.8-10.8)
[2021-03-26 06:31] LABS: Anion Gap 8 mmol/L (10-20); BUN (Urea Nitrogen) 7 mg/dL (8.9-20.6); Calc. Creatinine Clearance 127 mL/min (70-130); Calcium 8.6 mg/dL (7.8-10.44); Carbon Dioxide 28 mmol/L (22-29); Chloride 107 mmol/L (98-107); Glucose 85 mg/dL (70-105); Sodium 139 mmol/L (136-145)
[2021-03-26] MEDS: Sodium Chloride 0.9% 1,000 ML IV SCH (06:31)
[2021-03-26] MEDS: Aspirin 81 mg Enteric Coated Tablet PO SCH (08:54)
[2021-03-26] MEDS: Famotidine 20 MG TAB PO SCH (08:54)
[2021-03-26] MEDS: HYDROcodone/Acetaminophen 5/325 mg Tablet PO PRN (08:54)
[2021-03-26] MEDS: Morphine 4 MG/ML VIAL SLOW IVP PRN (10:54)
[2021-03-26] MEDS ORDERED: Bisacodyl 5 MG TAB PO PRN (12:10)
[2021-03-26] MEDS ORDERED: Bisacodyl 5 MG TAB PO SCH (12:15)
[2021-03-26 17:40] VITALS: BP 148/82; TEMP 99
== END 2021-03-26 18:50 | disposition home or self-care (01) | DRG 696 ==
LOC: ERS 09:56 → SJJU 16:29 → OBSVTOIN 03-24 14:35
PROVIDERS: ADMIT Family Medicine; ATTEND Internal Medicine
PROC: 3E1K78Z Irrigation of Genitourinary Tract using Irrigating Substance, Via Natural or Artificial Opening (ICD-10-PCS; principal; 2021-03-24)
DX: R31.0 Gross hematuria (principal); E87.1 Hypo-osmolality and hyponatremia; Z20.822 Contact with and (suspected) exposure to COVID-19; I25.10 Atherosclerotic heart disease of native coronary artery without angina pectoris; I10 Essential (primary) hypertension; E78.5 Hyperlipidemia, unspecified; N40.0 Benign prostatic hyperplasia without lower urinary tract symptoms; K21.9 Gastro-esophageal reflux disease without esophagitis; I25.2 Old myocardial infarction; Z88.8 Allergy status to other drugs, medicaments and biological substances; Z79.01 Long term (current) use of anticoagulants; Z79.82 Long term (current) use of aspirin; Z79.52 Long term (current) use of systemic steroids; Z79.899 Other long term (current) drug therapy; Z95.5 Presence of coronary angioplasty implant and graft; Z87.891 Personal history of nicotine dependence
CPT/HCPCS: 36415; 51702; 51798; 74177; 80048; 80053; 81003; 81015; 85025; 96374; 96375; 96376; G0378; J2270; J2405; J3010; J7050; Q9967; U0002